=== PATIENT | female | born 1985 | race Caucasian/White ===

== ENCOUNTER → 2017-02-08 | Day surgery (SDC) | payer OTHER ==
[2017-02-08 10:29] LABS: HCT 45.4 % (37.0-47.0); HGB 15.1 g/dl (12.5-16.0); MCH 30.5 pg (25.0-31.0); MCHC 33.3 g/dL (32.0-36.0); MCV 91.7 fL (78.0-100.0); MPV 9.1 fL (6.0-9.5); RBC 4.95 M/uL (4.20-5.40); RDW 12.8 % (11.5-14.0); WBC 9.9 K/uL (4.0-10.5)
[2017-02-08 10:54] LABS: ALBUMIN 4.6 g/dL (3.5-5.0); BILIRUBIN - TOTAL 0.5 mg/dL (0.1-1.0); CREATININE 0.8 mg/dL (0.5-1.0); GLOBULIN (CALCULATION) 3.1 g/dL (2.2-4.2); POTASSIUM 4.2 mmol/L (3.5-5.1); TOTAL PROTEIN 7.7 g/dL (6.4-8.3)
== END | disposition home or self-care (01) ==
LOC: FAS 09:30
PROVIDERS: Surgery
DX: K20.9 Esophagitis, unspecified (principal); K29.70 Gastritis, unspecified, without bleeding; M79.7 Fibromyalgia; K21.9 Gastro-esophageal reflux disease without esophagitis; F41.9 Anxiety disorder, unspecified; J45.909 Unspecified asthma, uncomplicated; M19.90 Unspecified osteoarthritis, unspecified site; E61.1 Iron deficiency; G43.909 Migraine, unspecified, not intractable, without status migrainosus; F43.10 Post-traumatic stress disorder, unspecified; F32.9 Major depressive disorder, single episode, unspecified; Z79.82 Long term (current) use of aspirin; Z79.899 Other long term (current) drug therapy; Z98.890 Other specified postprocedural states; Z90.49 Acquired absence of other specified parts of digestive tract
CPT/HCPCS: 36415; 80053; 84703; 88305; J2704